=== PATIENT | male | born 1940 | race Hispanic/Latino ===

== ENCOUNTER 2018-06-24 09:00 | Day surgery (SDC) | payer MEDICARE ==
[2018-06-22 15:22] LABS: BASOPHILS % (AUTO) 0.6 % (0.0-5.0); EOSINOPHILS % (AUTO) 5.1 % (0.0-8.0); HEMATOCRIT 46.4 % (42-54); LYMPHOCYTES % (AUTO) 25.2 % (21.0-51.0); MEAN CORPUSCULAR HEMOGLOBIN 30.8 pg (27.0-33.0); MEAN CORPUSCULAR HGB CONC 33.4 g/dL (32.0-36.0); MEAN CORPUSCULAR VOLUME 92.3 fL (79-99); NEUTROPHILS % (AUTO) 63.1 % (40.0-77.0); NUCLEATED RED BLOOD CELLS 0.1 % (0.0-0.19); PLATELET COUNT (AUTO) 219 K/uL (130-400); RED BLOOD CELL COUNT(AUTO) 5.02 MIL/uL (4.50-6.20); RED CELL DISTRIBUTION WIDTH 13.6 % (11.0-15.5); WHITE BLOOD COUNT (AUTO) 7.7 K/uL (4.8-10.8)
[2018-06-22 15:35] LABS: CREATININE 1.2 mg/dL (0.5-1.5); POTASSIUM 4.3 mmol/L (3.5-5.1)
[2018-06-22 16:21] VITALS: BP 143/60
--- NOTE | 2018-06-22 16:44 | NUR ---
PER JORDAN NAVARRO RN SHE NOTIFIED DR. CISNEROS THAT PATIENT TOOK PLAVIX 75 MG UNTIL TODAY, PER DR. CISNEROS OK TO PROCEED, JUST TO TELL PATIENT AND HIS NOT TO TAKE ANYMORE UNTIL NOTIFIED TO RESTART.
[~2018-06-24] VITALS: Ht 170.2 cm; Wt 88.7 kg
[2018-06-24] VITALS (14 sets, daily range): BP systolic 126–144; BP diastolic 61–78
[~2018-06-24 09:00] MED LIST: BERBERINE PO; CEFTRIAXONE SODIUM 1 GM IVP SCH; CHOL100040 PO; CLOP75TA14 PO; IBUP1TAB71 PO; MULT-1203 PO; RIVA1.5C6 PO
[2018-06-24] MEDS ORDERED: IOHEXOL-350 50ML VIAL IV ONE (09:47)
[2018-06-24] MEDS ORDERED: LACTATED RINGERS 1000ML 1,000 ML IV ONE (10:25)
[2018-06-24] MEDS ORDERED: LIDOCAINE PF 2% 5ML ABBOJECT ONE (11:53)
[2018-06-24] MEDS ORDERED: PROPOFOL 10 MG/ML 20ML VIAL IV ONE ×4 (11:54→13:07)
[2018-06-24] MEDS ORDERED: FENTANYL CITRATE PF 50 MCG/1 ML 2ML VIAL ONE (11:55)
[2018-06-24] MEDS ORDERED: OPIUM/BELLADONNA ALKALOIDS 1 EACH SUPP.RECT RC ONE (13:44)
[2018-06-24] MEDS ORDERED: MIDAZOLAM HCL 1 MG/ML 2ML VIAL ONE (14:18)
[2018-06-24] MEDS ORDERED: PHENAZOPYRIDINE HCL 200 MG TABLET ONE (14:41)
== END 2018-06-24 15:18 | disposition home or self-care (01) ==
LOC: DAH 09:00
PROVIDERS: ATTEND Urology
DX: N13.2 Hydronephrosis with renal and ureteral calculous obstruction (principal); E11.9 Type 2 diabetes mellitus without complications; I25.10 Atherosclerotic heart disease of native coronary artery without angina pectoris; Z86.73 Personal history of transient ischemic attack (TIA), and cerebral infarction without residual deficits; Z79.899 Other long term (current) drug therapy; Z79.84 Long term (current) use of oral hypoglycemic drugs; Z98.890 Other specified postprocedural states; Z95.1 Presence of aortocoronary bypass graft; F03.90 Unspecified dementia, unspecified severity, without behavioral disturbance, psychotic disturbance, mood disturbance, and anxiety; G20 Parkinson's disease; E11.51 Type 2 diabetes mellitus with diabetic peripheral angiopathy without gangrene
CPT/HCPCS: 36415; 52356; 74420; 80048; 82948; 85025; 93005; A4218; A4315; A4354; A4358; A4510; A4600; C1758 ×2; C1769; C2617; J0696; J2001; J2250; J2704 ×4; J3010; J7120; Q9967

== ENCOUNTER 2018-08-26 09:02 | Day surgery (SDC) | payer MEDICARE ==
[2018-08-24 15:30] VITALS: BP 135/56
[2018-08-24 15:51] LABS: BASOPHILS % (AUTO) 0.6 % (0.0-5.0); EOSINOPHILS % (AUTO) 4.8 % (0.0-8.0); HEMATOCRIT 45.6 % (42-54); LYMPHOCYTES % (AUTO) 32.4 % (21.0-51.0); MEAN CORPUSCULAR HEMOGLOBIN 29.7 pg (27.0-33.0); MEAN CORPUSCULAR HGB CONC 32.8 g/dL (32.0-36.0); MEAN CORPUSCULAR VOLUME 90.6 fL (79-99); MONOCYTES % (AUTO) 6.6 % (3.0-13.0); NEUTROPHILS % (AUTO) 55.6 % (40.0-77.0); PLATELET COUNT (AUTO) 233 K/uL (130-400); RED BLOOD CELL COUNT(AUTO) 5.04 MIL/uL (4.50-6.20); RED CELL DISTRIBUTION WIDTH 13.4 % (11.0-15.5); WHITE BLOOD COUNT (AUTO) 6.2 K/uL (4.8-10.8)
[2018-08-24 15:56] LABS: CREATININE 1.3 mg/dL (0.5-1.5); POTASSIUM 3.9 mmol/L (3.5-5.1)
[2018-08-26] VITALS (10 sets, daily range): BP systolic 107–150; BP diastolic 52–67
[~2018-08-26] VITALS: Ht 172.7 cm; Wt 87.9 kg
[~2018-08-26 09:02] MED LIST changes: -BERBERINE PO; +CEFAZOLIN SODIUM 1 GM VIAL IVP SCH; -CEFTRIAXONE SODIUM 1 GM IVP SCH; +LIDOCAINE HCL 2% JELLY 5 ML TP SCH; +MELA3CAP PO; +MEMA5TAB7 PO; +METO25TA6 PO; +OXYB5TAB10 PO; +TAMS-1 PO; +[UNRECOGNIZED DRUG - OTHER] PO
[2018-08-26] MEDS ORDERED: LACTATED RINGERS 1000ML 1,000 ML IV ONE (10:22)
[2018-08-26] MEDS ORDERED: LIDOCAINE HCL 2% PF 20 ML JEL DISP.SYRIN MM ONE (10:39)
[2018-08-26] MEDS ORDERED: PROPOFOL 10 MG/ML 20ML VIAL IV ONE (10:49)
[2018-08-26] MEDS: CEFAZOLIN SODIUM 1 GM VIAL ONE ×2 (10:50→10:52)
[2018-08-26] MEDS ORDERED: KETOROLAC TROMETHAMINE 30MG/ML ONE (10:59)
== END 2018-08-26 12:35 | disposition home or self-care (01) ==
LOC: DAH 09:02
PROVIDERS: ATTEND Urology
DX: Z46.6 Encounter for fitting and adjustment of urinary device (principal); I25.10 Atherosclerotic heart disease of native coronary artery without angina pectoris; E13.51 Other specified diabetes mellitus with diabetic peripheral angiopathy without gangrene; G20 Parkinson's disease; F02.80 Dementia in other diseases classified elsewhere, unspecified severity, without behavioral disturbance, psychotic disturbance, mood disturbance, and anxiety; N20.0 Calculus of kidney; R07.9 Chest pain, unspecified; Z86.73 Personal history of transient ischemic attack (TIA), and cerebral infarction without residual deficits; Z95.1 Presence of aortocoronary bypass graft; Z79.84 Long term (current) use of oral hypoglycemic drugs; Z79.01 Long term (current) use of anticoagulants
CPT/HCPCS: 36415; 52310; 80048; 82948 ×2; 85025; 93005; A4218; A4358; A4510; A4600; J0690; J1885; J2704; J7120 ×2

== ENCOUNTER → 2018-09-16 | Outpatient (CLI) | payer MEDICARE ==
[~2018-09-16] MED LIST changes: -CEFAZOLIN SODIUM 1 GM VIAL IVP SCH; -CHOL100040 PO; +GADODIAMIDE 10 MMOL/20 ML VIAL IV ONE; -LIDOCAINE HCL 2% JELLY 5 ML TP SCH; -MEMA5TAB7 PO
== END | disposition home or self-care (01) ==
LOC: RAH 09:02
PROVIDERS: ATTEND Psychiatry & Neurology Behavioral Neurology & Neuropsychiatry
DX: G31.89 Other specified degenerative diseases of nervous system (principal); R90.82 White matter disease, unspecified; F03.90 Unspecified dementia, unspecified severity, without behavioral disturbance, psychotic disturbance, mood disturbance, and anxiety
CPT/HCPCS: 70553; A9579

== ENCOUNTER 2020-03-29 09:26 | Emergency (ER) | payer MEDICARE ==
[~2020-03-29 09:26] MED LIST changes: +ACET1TAB12 PO; +ALPR0.5T8 PO; +AMLO-257 PO; +APIX2.5T PO; +DOCU-133 PO; +ESCI-8 PO; +FAMO-136 PO; -GADODIAMIDE 10 MMOL/20 ML VIAL IV ONE; +HYDR-4153 PO; +LACT10SO9 PO; +LORA10CA PO; +MAG-55 PO; -MELA3CAP PO; -MULT-1203 PO; +ONDA4TAB4 PO; -OXYB5TAB10 PO; -RIVA1.5C6 PO; +RIVA4.5C17 PO; +SPIR25TA6 PO; -[UNRECOGNIZED DRUG - OTHER] PO
[2020-03-29 10:18] LABS: BASOPHILS % (AUTO) 0.1 % (0.0-5.0); EOSINOPHILS % (AUTO) 0.3 % (0.0-8.0); LYMPHOCYTES % (AUTO) 14.9 % (21.0-51.0); MEAN CORPUSCULAR HGB CONC 32.7 g/dL (32.0-36.0); MEAN CORPUSCULAR VOLUME 91.7 fL (79-99); MONOCYTES % (AUTO) 3.7 % (3.0-13.0); NEUTROPHILS % (AUTO) 80.7 % (40.0-77.0); PLATELET COUNT (AUTO) 200 K/uL (130-400); RED BLOOD CELL COUNT(AUTO) 4.47 MIL/uL (4.50-6.20); RED CELL DISTRIBUTION WIDTH 13.1 % (11.0-15.5); WHITE BLOOD COUNT (AUTO) 7.4 K/uL (4.8-10.8)
[2020-03-29 10:24] LABS: APPEARANCE,URINE Clear (CLEAR); BILIRUBIN,URINE Small (NEGATIVE); COLOR,URINE Dark Yellow (YELLOW); GLUCOSE, URINE (UA) >=1000 mg/dL (NEGATIVE); INR 1.06 (0.85-1.15); KETONES,URINE Negative (NEGATIVE); LEUKOCYTE ESTERASE ,URINE Negative (NEGATIVE); NITRATE,URINE Negative (NEGATIVE); OCCULT BLOOD,URINE Negative (NEGATIVE); PROTEIN,URINE Negative (NEGATIVE); PROTHROMBIN TIME 11.3 SEC (9.6-11.6)
[2020-03-29 10:25] LABS: CARBON DIOXIDE 24 mmol/L (21-32); CHLORIDE 102 mmol/L (101-111); CREATININE 1.2 mg/dL (0.5-1.5); GLOMERULAR FILTR. RATE CALC 62 mL/min (>60); GLUCOSE,RANDOM 308 mg/dL (70-105); POTASSIUM 4.2 mmol/L (3.5-5.1); SODIUM SERUM 138 mmol/L (136-145); UREA NITROGEN, BLOOD 16 mg/dL (7-18)
[2020-03-29 10:26] LABS: PARTIAL THROMBOPLASTIN TIME 25.5 SEC (26.3-35.5)
[2020-03-29 10:36] LABS: ALANINE AMINOTRANSFERASE 55 U/L (12-78); ALBUMIN 2.6 g/dL (3.5-5.0); ASPARTATE AMINOTRANSFERASE 25 U/L (10-37); BILIRUBIN,TOTAL 2.3 mg/dL (0.2-1.0); CREATINE KINASE, TOTAL 30 U/L (21-232); MYOGLOBIN 29 ng/mL (10-92); TOTAL PROTEIN, SERUM 5.4 g/dL (6.0-8.3); TROPONIN I < 0.04 ng/mL (0.00-0.06)
[2020-03-29 11:02] LABS: BACTERIA,URINE Rare /HPF (None Seen); RBC,URINE 0-1 /HPF (0-1); SQUAMOUS EPITHELIAL CELL,UR Rare /HPF (0-2); WBC,URINE 0-1 /HPF (0-1)
== END 2020-03-29 15:25 | disposition home or self-care (01) ==
LOC: EDH 09:26
DX: I10 Essential (primary) hypertension (principal); Z20.828 Contact with and (suspected) exposure to other viral communicable diseases; Z79.899 Other long term (current) drug therapy; E11.9 Type 2 diabetes mellitus without complications; F32.9 Major depressive disorder, single episode, unspecified; G20 Parkinson's disease; Z72.0 Tobacco use; Z88.8 Allergy status to other drugs, medicaments and biological substances
CPT/HCPCS: 36415; 71045; 80053; 81001; 82550; 83605; 83874; 84145; 84484; 85025; 85610; 85730; 86900; 86901; 87040 ×2; 87077; 87088; 87186; 87426; 93005; 99285; U0003